=== PATIENT | female | born 1980 | race Caucasian/White ===

== ENCOUNTER 2017-01-15 07:26 | Day surgery (SDC) | payer OTHER ==
[2017-01-15] VITALS (14 sets, daily range): BP systolic 98–142; BP diastolic 46–74; PULSE 61–95; RESP 14–24; O2SAT 94–100
[~2017-01-15] VITALS: Ht 149.9 cm; Wt 77.1 kg
[~2017-01-15 07:26] MED LIST: ASPI-973 PO; CITA40TA13 PO; HYDR-4003 PO; Lactated Ringer's 1,000 ML IV SCH; OMEP20CA11 PO; ONDA-53 PO
[2017-01-15] MEDS ORDERED: MetoCLOpramide 5 mg/mL 2 mL Inj ONE (07:27)
[2017-01-15] MEDS ORDERED: Glycopyrrolate 0.2 MG/ML 1mL Inj ONE (07:27)
[2017-01-15] MEDS ORDERED: Propofol 10,000 mCg/mL 20 mL Inj ONE (07:27)
[2017-01-15] MEDS ORDERED: Ondansetron 2 mg/mL 2 mL Inj ONE (07:27)
[2017-01-15] MEDS ORDERED: Dexamethasone 4 mg/mL Inj ONE (07:27)
[2017-01-15] MEDS ORDERED: Rocuronium 10 mg/mL 5 mL Inj ONE (07:27)
[2017-01-15] MEDS ORDERED: Neostigmine 1 mg/mL 10 mL Inj ONE (07:27)
[2017-01-15] MEDS ORDERED: fentaNYL-PF 50 mCg/mL 2 mL Inj ONE (07:27)
[2017-01-15] MEDS ORDERED: Lactated Ringer's 1,000 ML IV ONE (07:53)
[2017-01-15] MEDS ORDERED: AMPH20TA5 PO (08:18)
[2017-01-15] MEDS ORDERED: Lactated Ringer's 500 ML IV PRN (09:18)
[2017-01-15] MEDS ORDERED: Lactated Ringer's 1,000 ML IV SCH (09:18)
--- NOTE | 2017-01-15 09:18 | PCM.HPANE ---
Patient Data Surgeon Admitting Provider: Attending Provider:Lokesh Jordan MD Primary Care Physician:Marcus Other Provider:Mark Scherer Anesthesia Reason for Visit Gall Bladder Polyp Ht/WT & BMI Height (Feet): 4 Height (Inches): 11.00 Weight (Kilograms): 77.110 Body Mass Index 34.00 Allergies Coded Allergies: No Known Allergies (Unverified Allergy, Unknown, 03/01/15) Past Anesthesia History Anesthesia History: Denies:: Anesthesia Reactions Diabetes History Type of Diabetes: Diet Controlled Glycemic Control: Oral Medication Current Bedside Blood Glucose: 100 MRSA MRSA: No Medications Home Meds Incl Beta Kev: No Reported Medications Amphet Asp/Amphet/D-Amphet (Adderall)20 Mg Cyyaag86 Mg PO DAILY Ref 0 01/15/17 Ondansetron 4 Mg Tablet4 Mg PO Q8H PRN For Nausea/Vomiting 01/14/17 Omeprazole 20 Mg Capsule.dr20 Mg PO DAILY Ref 0 01/14/17 Hydrocodone-Acetaminophen 5-325 mg 1 Each Tablet1 Tablet PO Q6H PRN For Pain Ref 0 01/14/17 Citalopram 40 Mg Cjczth21 Mg PO DAILY 30 Days Ref 0 01/14/17 Aspirin 81 Mg Vrclti50 Mg PO DAILY Ref 0 01/14/17 Discontinued Scripts [Simethicone] (Mylicon)80 MG TAB.CHEW No Conflict Check80 Mg PO QID PRN for gas #10 Prov:Ayana Kline MD 03/14/15 Hydroxyzine Pamoate (Vistaril)25 Mg Vxyzgbv21 Mg PO Q6H PRN for itching or pain #20 CAPSULE Prov:Ayana Kline MD 03/14/15 [Oxycodone/Acetaminophen] (Percocet 5-325)1 TAB TABLET No Conflict Check1-2 Tab PO Q4H PRN For Pain #50 TABLET Prov:Ayana Kline MD 03/14/15 [Ibuprofen] (Motrin)800 MG TABLET No Conflict Sedvw162 Mg PO Q6H PRN For Pain # 30 TABLET Prov:Ayana Kline MD 03/14/15 [Docusate Sodium] (Colace)100 MG CAPSULE No Conflict Xcyoo744 Mg PO BID #14 CAPSULE Prov:Ayana Kline MD 03/14/15 History History of ENT Problems?: No Hx of Heart Problems?: No Hx of Respiratory Problem?: No Respiratory History: Denies:: Oxygen Administration Use of C-PAP Machine Hx Neurologic Problems?: No Hx of GI Problems?: Yes Gastrointestinal History: Positive for:: Gall Bladder Disease (current admission problem) Hx of Problems?: No Genitourinary History: Denies:: Kidney Stones Urinary Tract Infection HX of Peritoneal Dialysis: No Female Hx: Denies:: Currently (tubal ligation) Hx Musculoskeletal Problems?: No Hx of Psycho/Social Problems?: No Hx Surgeries?: Yes (C sections x2, tubal ligation) Hx Any Other Health Problems?: Yes Other History: Denies:: Cancer Thyroid Disease Bedside Blood Glucose: 100 Hx Alcohol Use: YesAlcoholic Drinks Per Day: socialHx Substance Use: No Smoking Status: Never Smoker Have You Smoked inLast 12 mo: Yes (1/2 pack daily) Stop/Bang Treated for Sleep Apnea?: No Do You Have a CPAP Machine?: No S-Snoring: Do You Snore Loudly: No T-Tired: feel tired, fatigued: Yes O-Obsered: Observed not breath: No P-Blood Pressure: treated: No B- Body Mass Index > 35 kg/m2: No A- Age over 50: No N- Neck Large Circumference: No G- Gender Male: No SHERIN Total Score: 1 SHERIN Risk Assessment: Low Risk, <3 Yes Risk Assessment Category Category 1A: Patient has history of documented sleep apnea, and HAS NOT received any narcotic, sedative or anesthesia administration during this stay. Category 1B: Patient has history of documented sleep apnea, and HAS received any narcotic , sedative or anesthesia administration during this stay Category 2: Patient has SUSPECTED Obstructive Sleep Apnea, and HAS received any narcotic , sedative or anesthesia administration during this stay. Category 3: Patient has SUSPECTED Obstructive Sleep Apnea and HAS NOT received narcotic, sedative or anesthesia administration during this stay. Category 4: Outpatient in Procedural Areas with known sleep apnea or who screen positive for High Risk via the STOP/BANG questionnaire. Exam Exam Vital Signs Vital Signs Date Time Temp Pulse Resp B/P Pulse Ox O2 Delivery O2 Flow Rate FiO2 01/15/17 07:56 35.6 70 14 109/57 98 Room Air General Appearance: Oriented X3 HEENT/AIRWAY: MP 2 Lungs: Normal Air Movement Heart: Regular Rate/Rhythm Meds/Labs/Diagnostics Admission Meds Current Medications Gabapentin (Neurontin) 600 mg PREOP ONCE PO Last administered on 01/15/17 07: 55; Start 01/15/17 at 06:00; Stop 01/15/17 at 06:01; Status DC Celecoxib (CeleBREX) 200 mg PREOP ONCE PO Last administered on 01/15/17 07:55 ; Start 01/15/17 at 06:00; Stop 01/15/17 at 06:01; Status DC Scopolamine (Transderm-Scop Patch) 1.5 mg ONCE ONCE TOPICAL Last administered on 01/15/17 07:55; Start 01/15/17 at 05:00; Stop 01/15/17 at 05:01; Status DC Acetaminophen 1000 mg 1,000 mg PREOP ONCE PO Last administered on 01/15/17 07 :54; Start 01/15/17 at 06:00; Stop 01/15/17 at 06:01; Status DC Lactated Ringer's (Lr) 1,000 ml @ ud STK-MED ONCE IV Last administered on 01/15 07:53; Start 01/15/17 at 07:53; Stop 01/15/17 at 07:55; Status DC Bedside Blood Glucose: 100 Plan Impression Patient chart reviewed, patient interviewed and anesthestic plan with risks, benefits, and alternatives discussed, and informed consent obtained. NPO Status: 01/14@2130,sips of water this am ASA Physical Status: ASA2 Mod Systemic Disease Anesthetic Plan: GA Bene/Risks/Altern/Consents: Yes HP Complete Prior to Induction: Yes Mike Wagner MD Jan 15, 2017 09:18
[2017-01-15] MEDS ORDERED: HYDROmorphone 1 mg/mL Inj IVPUSH PRN (09:20)
[2017-01-15] MEDS ORDERED: Ondansetron 2 mg/mL 2 mL Inj IVPUSH PRN (09:20)
[2017-01-15] MEDS ORDERED: Phenylephrine 10,000 mCg/mL Inj IVPUSH PRN (09:20)
[2017-01-15] MEDS ORDERED: EPHEDrine Sulfate 50 mg/mL Inj IVPUSH PRN (09:20)
[2017-01-15] MEDS ORDERED: Dexamethasone 4 mg/mL Inj IVPUSH PRN (09:20)
[2017-01-15] MEDS ORDERED: MetoCLOpramide 5 mg/mL 2 mL Inj IVPUSH PRN (09:20)
[2017-01-15] MEDS ORDERED: Bupivacaine-MPF 0.25%/EPI 30 mL Inj INJ ONE (09:50)
[2017-01-15] MEDS: fentaNYL-PF 50 mCg/mL 2 mL Inj IVPUSH PRN ×2 (10:49→11:12)
--- NOTE | 2017-01-15 10:50 | PCM.ANEP2 ---
Post Anesthesia Evaluation ASA/CMS Post Anesthesia VS in Patient's Normal Range?: Yes Resp Stable; Airway Patent?: Yes CV Function & Hydration Stable: Yes Mental Status Recovered?: Yes Pain control Satisfactory?: Yes N/V Control Satisfactory?: Yes Mike Wagner MD Jan 15, 2017 10:50
--- NOTE | 2017-01-15 10:50 | PCM.ANEP1 ---
Post Anesthesia Phase 1 PACU Phase 1 Assessment Vital Signs Vital Signs Date Time Temp Pulse Resp B/P Pulse Ox O2 Delivery O2 Flow Rate FiO2 01/15/17 10:40 36.3 71 20 112/61 97 Room Air 01/15/17 10:35 74 24 118/60 99 Room Air 01/15/17 10:30 78 21 142/74 98 Room Air 01/15/17 10:25 90 22 100 Simple Mask 8 01/15/17 10:20 95 21 125/68 97 Simple Mask 8 01/15/17 10:15 36.6 92 22 138/74 96 Simple Mask 8 01/15/17 07:56 35.6 70 14 109/57 98 Room Air Anesthetic Administered: GA Level of Alertness: Awake, talking MARTINEZ's with Equal Strength: No Pain: No Lungs: Normal Air Movement Mike Wagner MD Jan 15, 2017 10:50
[2017-01-15] MEDS ORDERED: oxyCODONE-Acetamin 5-325 mg Tablet PO PRN (11:55)
--- NOTE | 2017-01-16 00:20 | OP ---
[address] [address] OPERATIVE REPORT PATIENT: TORIBIO ANGEL : 1980 MR#: [id number] ADMIT: 01/15/2017 JOB ID: [id number] DATE OF SURGERY: 01/15/2017 ANESTHESIA: General. PREOPERATIVE DIAGNOSIS(ES): 1. Gallbladder polyps. 2. Abdominal pain. POSTOPERATIVE DIAGNOSIS(ES): 1. Gallbladder polyps. 2. Abdominal pain. OPERATIVE PROCEDURE: Laparoscopic cholecystectomy. SURGEON: Lokesh Jordan MD. BEARING MAKER: Kenyon Hill PA-C. (The practice assistant was required for the safe and timely completion of the case). COMPLICATIONS: None. ESTIMATED BLOOD LOSS: Less than 5 mL. CONDITION: Satisfactory. SPECIMEN: Gallbladder. FINDINGS: The gallbladder appeared unremarkable. INDICATIONS/SIGNIFICANT HISTORY: The patient is a 36-year-old female who has been having right upper quadrant abdominal pain for a number of weeks as well as pain between her shoulder blades. Eventually, she underwent an evaluation for this. An ultrasound demonstrated gallbladder wall thickening, two polyps measuring 3 mm and 6 mm. She was referred to me. We discussed management of her abdominal pain as well as the polyps. Given that there were no stones, I discussed obtaining a HIDA scan. With respect to the polyps, I offered cholecystectomy versus followup ultrasound in three months. The patient had a previous ultrasound which I obtained. This was about five years earlier and this did not show polyps at that time. After discussion, she elected to proceed directly with cholecystectomy understanding that we have not definitively demonstrated that her pain would be resolved. OPERATIVE TECHNIQUE: The patient was taken to the operating room and placed in the supine position. General anesthesia was administered and the abdomen was prepped and draped in standard surgical fashion. A procedural pause was performed. Entry was gained into the abdomen through a supraumbilical incision using a 10 mm Optiview trocar. Pneumoperitoneum was achieved without complication. Local anesthetic was injected, followed by insertion of 5 mm ports in the subxiphoid as well as two in the right upper quadrant. The gallbladder was grasped and retracted cephalad. It was very easy to identify the structures. Dissection was begun and a critical view of safety was easily achieved. Two clips were placed on the cystic artery and three on the duct and these were both transected sharply. The remainder of the dissection of the gallbladder off the cystic duct was then completed and the gallbladder was removed through the 10 mm port site. The surgical bed was inspected and found to be completely hemostatic. The 10 mm port site fascia was closed using 0 PDS with a laparoscopic suture passer. The lateral ports were then removed under direct visualization followed by releasing of pneumoperitoneum and removal of the remaining port. Skin was closed using 4-0 Monocryl. The entire procedure was well tolerated without complication.
--- NOTE | 2017-01-16 13:11 | PATH ---
SURGICAL PATHOLOGY Attending Physician:Lokesh Jordan MD CASE STATUS: Signed Out PATIENT NAME: TORIBIO ANGEL PID: [id number] : 1980 DATE COLLECTED:01/15/2017 17:28 SPECIMEN: Gallbladder CLINICAL HISTORY: GALLBLADDER POLYP 1). GALLBLADDER FINAL DIAGNOSIS: 1.GALLBLADDER: ACALCULOUS CHRONIC CHOLECYSTITIS. CHANGES CONSISTENT WITH INTRAMURAL ADENOMYOMA, NEGATIVE FOR ATYPIA. ICD10 CODE K82.8 GROSS DESCRIPTION: The specimen is received in one formalin filled container labeled with the patient's name, sublabeled "gallbladder" and consists of an intact 8.5 x 2.5 x 2.5 CM gallbladder. The serosa is smooth. The wall is 0.2-0.3 CM in thickness. The mucosa is a dark green in color. The lumen contains a dark green mucoid material and no calculus are noted. 5 personal banking representative sections are submitted in one cassette. 01/15/2017 DAC MICRO DESCRIPTION: See diagnosis. ICD-9 CODES: CPT CODES: 1: 33110 Electronically Signed Out Gavino Sarabia MD Formerly [facility] [address], [place] [address] Technical component performed at [facility], [address] [place] [address] Ave[address], [place], [address]
== END 2017-01-15 23:59 | disposition home or self-care (01) ==
LOC: SAS 07:26
PROVIDERS: ATTEND General Practice
DX: K81.1 Chronic cholecystitis (principal); E27.9 Disorder of adrenal gland, unspecified; E11.9 Type 2 diabetes mellitus without complications; F32.9 Major depressive disorder, single episode, unspecified; E28.2 Polycystic ovarian syndrome; F90.9 Attention-deficit hyperactivity disorder, unspecified type; F17.210 Nicotine dependence, cigarettes, uncomplicated; Z79.82 Long term (current) use of aspirin